=== PATIENT | male | born 1945 | race Caucasian/White ===

== ENCOUNTER 2018-09-22 12:17 | Emergency (ER) | payer MEDICARE, BC ==
[~2018-09-22] VITALS: Ht 188 cm; Wt 97.5 kg
--- NOTE | 2018-09-22 13:07 | EKG ---
[address] [address] Test Date: 2018-09-22 Test Time: 13:00:31 Pat Name: ANNETTE DO Department: Room: Gender: M [employer] Services Representative: : 1945 Requested By: KEYANA GALARZA Order Number: [id number] Reading MD: Measurements Intervals [place] Rate: 71 P: 43 NV: 170 QRS: -21 QRSD: 86 T: 64 QT: 408 QTc: 443 Interpretive Statements SINUS RHYTHM LEFTWARD AXIS QRS(T) CONTOUR ABNORMALITY CONSISTENT WITH ANTEROSEPTAL INFARCT PROBABLY OLD T ABNORMALITY IN HIGH LATERAL LEADS ABNORMAL ECG RI6.01 No previous ECG available for comparison
[2018-09-22] MEDS ORDERED: cloNIDine HCL 0.1 MG TABLET PO ONE (13:15)
--- NOTE | 2018-09-22 13:19 | PHYS DOC ---
Past History Past Medical History: No Pertinent History Past Surgical History: Tonsillectomy, Other Smoking: Non-smoker Alcohol Use: None Drug Use: None Adult General Chief Complaint Chief Complaint: HYPERTENSION HPI HPI Patient is a 72-year-old male presents with high blood pressure. He was sent from his primary care physician's office due to the elevated blood pressure. This was first noted recently during an eye doctor's appointment. Patient denies any chest pain, difficulty breathing, weakness, change in vision, headache, nor change in behavior according to his . No recent changes in medicine. Patient is not taking any medicines. He was given a dose of a medicine primary care p hysician's office which did not significantly improve the blood pressure and was sent here for further evaluation. And has no symptoms.[] Review of Systems Review of Systems Constitutional: Denies fever or chills [] Eyes: Denies change in visual acuity, redness, or eye pain [] HENT: Denies nasal congestion or sore throat [] Respiratory: Denies cough or shortness of breath [] Cardiovascular: No chest pain or palpitations[] GI: Denies abdominal pain, nausea, vomiting, bloody stools or diarrhea [] : Denies dysuria or hematuria [] Musculoskeletal: Denies back pain or joint pain [] Integument: Denies rash or skin lesions [] Neurologic: Denies headache, focal weakness or sensory changes [] Endocrine: Denies polyuria or polydipsia [] All other systems were reviewed and found to be within normal limits, except as documented in this note. Current Medications Current Medications Current Medications Medications (Trade) Dose Ordered Sig/Chel Start Time Stop Time Status Last Admin Dose Admin Clonidine HCl (Catapres) 0.2 mg 1X ONCE 09/22/18 13:15 09/22/18 13:16 DC 09/22/18 13:11 0.2 MG Allergies Allergies Allergies Coded Allergies Type Severity Reaction Last Updated Verified No Known Drug Allergies 09/22/18 No Physical Exam Physical Exam Constitutional: Well developed, well nourished, no acute distress, non-toxic appearance. [] HENT: Normocephalic, atraumatic, bilateral external ears normal, oropharynx moist, no oral exudates, nose normal. [] Eyes: PERRLA, EOMI, conjunctiva normal, no discharge. [] Neck: Normal range of motion, no tenderness, supple, no stridor. [] Cardiovascular:Heart rate regular rhythm, no murmur [] Lungs & Thorax: Bilateral breath sounds clear to auscultation [] Abdomen: Bowel sounds normal, soft, no tenderness, no masses, no pulsatile masses. [] Skin: Warm, dry, no erythema, no rash. [] Back: No tenderness, no CVA tenderness. [] Extremities: No tenderness, no cyanosis, no clubbing, ROM intact, no edema. [] Neurologic: Alert and oriented X 3, normal motor function, normal sensory function, no focal deficits noted. [] Psychologic: Affect normal, judgement normal, mood normal. [] Current Patient Data Vital Signs Vital Signs Date Time Temp Pulse Resp B/P (MAP) Pulse Ox O2 Delivery O2 Flow Rate FiO2 09/22/18 13:11 72 257/112 09/22/18 12:58 98.5 18 97 Room Air EKG EKG EKG shows a sinus rhythm at 71 bpm, left axis at -21�, QTC of 443 ms, no ST elevations. No old EKG available for comparison. Interpreted by me at 1259[] Radiology/Procedures Radiology/Procedures PROCEDURE: CHEST PA & LATERAL CHEST PA LATERAL Clinical indications: Hypertension. COMPARISON: None available. Findings: No acute lung infiltrate or pleural effusion or pulmonary edema or lung mass or pneumothorax is seen. The heart size, pulmonary vasculature, mediastinum and both isis are unremarkable. The osseous structures appear intact. Impression: No acute radiographic abnormality is seen.[] Course & Med Decision Making Course & Med Decision Making Pertinent Labs and Imaging studies reviewed. (See chart for details) ED course: Patient arrived, was placed in bed, and tolerated exam well. Patient's blood pressure did improve with clonidine. Discussion with patient's primary care physician, will start patient on amlodipine. Discussed findings with patient and family who voiced understanding. All questions were answered. Patient was discharged in improved condition. Medical decision making: While patient is feeling a little bit of protein in his urine, there is no evidence of acute end organ dysfunction. No evidence of cardiomegaly on chest x-ray. Will treat the white cells in the urine pending definitive culture.[] Dragon Disclaimer Dragon Disclaimer This electronic medical record was generated, in whole or in part, using a voice recognition dictation system. Departure Departure: Impression: Primary Impression: Hypertension Additional Impression: Urinary tract infection Disposition: HOME, SELF-CARE Condition: IMPROVED Referrals: DEJA MICHAEL MD (PCP) Follow-up in 2 days Patient Instructions: DASH Diet, Hypertension, Urinary Tract Infection Additional Instructions: Follow-up with your regular doctor in 2 days. Limit the amount of salt in your diet. Drink plenty of water. Return to the ER if you develop chest pain, difficulty breathing, change in vision, or any other concerns. Scripts Cephalexin (KEFLEX) 500 Mg Capsule 500 MG PO TID for URINARY TRACT INFECTION for 10 Days, #30 CAP Prov: KEYANA GALARZA DO 09/22/18 Amlodipine Besylate (AMLODIPINE BESYLATE) 5 Mg Tablet 1 TAB PO DAILY for HIGH BLOOD PRESSURE, #30 TAB 0 Refills Prov: KEYANA GALARZA DO 09/22/18 Problem Qualifiers Primary Impression: Hypertension Hypertension type: unspecified Qualified Codes: I10 - Essential (primary) hypertension Additional Impression: Urinary tract infection Urinary tract infection type: site unspecified Hematuria presence: without hematuria Qualified Codes: N39.0 - Urinary tract infection, site not specified KEYANA GALARZA DO Sep 22, 2018 13:19
[2018-09-22 13:21] LABS: BASO # 0.1 x10^3/uL (0.0-0.2); BASO % 1 % (0-3); EOS # 0.2 x10^3/uL (0.0-0.7); EOS % 3 % (0-3); HEMOGLOBIN 15.1 g/dL (13.0-17.5); LYMPH # 2.1 x10^3/uL (1.0-4.8); LYMPH % 25 % (24-48); MEAN CORPUSCULAR HEMOGLOBIN 31 pg (25-35); MEAN CORPUSCULAR HGB CONC 34 g/dL (31-37); MEAN CORPUSCULAR VOLUME 93 fL (79-100); MONO # 0.6 x10^3/uL (0.0-1.1); MONO % 7 % (0-9); NEUT # 5.4 x10^3uL (1.8-7.7); NEUT % 64 % (31-73); PLATELET COUNT 185 x10^3/uL (140-400); RED BLOOD COUNT 4.82 x10^6/uL (4.30-5.70); RED CELL DISTRIBUTION WIDTH 13.9 % (11.5-14.5); WHITE BLOOD COUNT 8.5 x10^3/uL (4.0-11.0)
[2018-09-22 13:30] LABS: ALBUMIN/GLOBULIN RATIO 1.1 (1.0-1.7); CALCIUM 8.9 mg/dL (8.5-10.1); CREATININE 1.1 mg/dL (0.7-1.3); POTASSIUM 3.9 mmol/L (3.5-5.1); TOTAL BILIRUBIN 0.6 mg/dL (0.2-1.0); TOTAL PROTEIN 7.8 g/dL (6.4-8.2)
--- NOTE | 2018-09-22 14:22 | RAD ---
CHEST PA LATERAL Clinical indications: Hypertension. COMPARISON: None available. Findings: No acute lung infiltrate or pleural effusion or pulmonary edema or lung mass or pneumothorax is seen. The heart size, pulmonary vasculature, mediastinum and both isis are unremarkable. The osseous structures appear intact. Impression: No acute radiographic abnormality is seen. Electronically signed by: Royal Johnson MD (09/22/2018 2:18 PM) [facility]
[2018-09-22 14:39] VITALS: BP 194/92
[2018-09-22 15:13] LABS: AMORPHOUS SEDIMENT,UR PRESENT /HPF; BACTERIA,URINE FEW /HPF (0-FEW); BILIRUBIN,URINE NEG (NEG); CLARITY,URINE CLOUDY; COLOR,URINE YELLOW; GLUCOSE,URINE NEG (NEG); NITRITE,URINE NEG (NEG); SQUAMOUS EPITHELIAL CELL,UR OCC /LPF; UROBILINOGEN,URINE 0.2 mg/dL (0.2 mg/dL)
[2018-09-22] MEDS ORDERED: AMLO5TAB10 PO (15:28)
[2018-09-22] MEDS ORDERED: CEPH-264 PO (15:28)
== END 2018-09-22 15:42 | disposition home or self-care (01) ==
LOC: ER 12:17 → EDSTATUS 12:29 → EKG 12:32 → EDSTATUS 12:44 → ER 15:42
DX: I10 Essential (primary) hypertension (principal); N39.0 Urinary tract infection, site not specified
CPT/HCPCS: 36415; 71046; 80053; 81001; 85025; 85610; 93005; 99285